=== PATIENT | female | born 1935 | race Caucasian/White ===

== ENCOUNTER 2022-02-22 12:41 | Emergency (ER) | payer MEDICARE, OTHER ==
--- NOTE | 2022-02-22 12:51 | ED Abdominal Pain ---
General Chief Complaint: Abdominal/GI Problems Stated Complaint: BLOODY STOOL; LETHARGY History of Present Illness Date Seen by Provider: Feb 22, 2022 Time Seen by Provider: 12:50 Initial Comments 86-year-old female brought in by family because a fatigue and complaints of "lethargy" patient is recently on hospice. They present they brought her because she "wanted to come to the doctor" however she states she is here because her kids wanted her to come to the doctor. They report that she had some bloody stools but that was over a week ago but none recently. Patient family reports that hospitalist thought that maybe she needed to be checked for urinary tract infection. No reports of fevers chills or other systemic complaints. Patient's complaints are otherwise very vague. Family reports that she is just been declining recently and she has had some increased fatigue and decreased appetite over the last couple weeks. No significant changes reported today. Allergies and Home Medications Allergies Coded Allergies: No Known Drug Allergies (Unverified , 02/22/22) Patient Home Medication List Home Medication List Reviewed: Yes Cephalexin (Cephalexin) 500 Mg Tablet, 500 MG PO QID Prescribed by: RADHA ZAYAS on 02/22/22 5167 Review of Systems Review of Systems Constitutional: see HPI, malaise Respiratory: Denies Cough, Denies Shortness of Air Cardiovascular: Denies Chest Pain, Denies Lightheadedness Gastrointestinal: See HPI; Denies Abdominal Pain, Denies Nausea, Denies Vomiting Genitourinary: No Symptoms Reported Musculoskeletal: no symptoms reported Skin: no symptoms reported Psychiatric/Neurological: No Symptoms Reported Physical Exam Vital Signs Vital Signs - First Documented 02/22/22 13:03 Temp 36.8 Pulse 67 Resp 18 B/P (MAP) 132/70 (90) Pulse Ox 97 O2 Delivery Room Air Capillary Refill : Height/Weight/BMI Height: '" Weight: lbs. oz. kg; BMI Method: General Appearance: no apparent distress, mild distress Respiratory: lungs clear, normal breath sounds Cardiovascular: normal peripheral pulses, regular rate, rhythm Gastrointestinal: non tender, soft Extremities: non-tender, normal inspection Neurologic/Psychiatric: alert, normal mood/affect, oriented x 3 Skin: normal color, warm/dry Progress/Results/Core Measures Results/Orders Lab Results Laboratory Tests Test 02/22/22 13:07 02/22/22 13:27 Range/Units White Blood Count 13.2 H 4.3-11.0 10^3/uL Red Blood Count 3.54 L 3.80-5.11 10^6/uL Hemoglobin 10.8 L 11.5-16.0 g/dL Hematocrit 31 L 35-52 % Mean Corpuscular Volume 88 80-99 fL Mean Corpuscular Hemoglobin 31 25-34 pg Mean Corpuscular Hemoglobin Concent 35 32-36 g/dL Red Cell Distribution Width 14.1 10.0-14.5 % Platelet Count 418 H 130-400 10^3/uL Mean Platelet Volume 9.9 9.0-12.2 fL Immature Granulocyte % (Auto) 1 % Neutrophils (%) (Auto) 84 H 42-75 % Lymphocytes (%) (Auto) 10 L 12-44 % Monocytes (%) (Auto) 5 0-12 % Eosinophils (%) (Auto) 0 0-10 % Basophils (%) (Auto) 0 0-10 % Neutrophils # (Auto) 11.1 H 1.8-7.8 10^3/uL Lymphocytes # (Auto) 1.3 1.0-4.0 10^3/uL Monocytes # (Auto) 0.7 0.0-1.0 10^3/uL Eosinophils # (Auto) 0.0 0.0-0.3 10^3/uL Basophils # (Auto) 0.0 0.0-0.1 10^3/uL Immature Granulocyte # (Auto) 0.1 0.0-0.1 10^3/uL Sodium Level 133 L 135-145 MMOL/L Potassium Level 3.5 L 3.6-5.0 MMOL/L Chloride Level 94 L 98-107 MMOL/L Carbon Dioxide Level 25 21-32 MMOL/L Anion Gap 14 5-14 MMOL/L Blood Urea Nitrogen 22 H 7-18 MG/DL Creatinine 0.97 0.60-1.30 MG/DL Estimat Glomerular Filtration Rate 57 BUN/Creatinine Ratio 23 Glucose Level 205 H 70-105 MG/DL Calcium Level 9.0 8.5-10.1 MG/DL Urine Color YELLOW Urine Clarity CLOUDY Urine pH 6.0 5-9 Urine Specific [place] 1.015 L 1.016-1.022 Urine Protein 2+ H NEGATIVE Urine Glucose (UA) NEGATIVE NEGATIVE Urine Ketones TRACE H NEGATIVE Urine Nitrite NEGATIVE NEGATIVE Urine Bilirubin NEGATIVE NEGATIVE Urine Urobilinogen 1.0 < = 1.0 MG/DL Urine Leukocyte Esterase 2+ H NEGATIVE Urine RBC (Auto) 1+ H NEGATIVE Urine RBC NONE /HPF Urine WBC >100 H /HPF Urine Squamous Epithelial Cells 2-5 /HPF Urine Crystals NONE /LPF Urine Bacteria LARGE H /HPF Urine Casts NONE /LPF Urine Mucus NEGATIVE /LPF Urine Culture Indicated YES My Orders Orders - SINGH ZAYASR L DO Basic Metabolic Panel (02/22/22 13:06) Cbc With Automated Diff (02/22/22 13:06) Ua Culture If Indicated (02/22/22 13:06) Urine Culture (02/22/22 13:27) Straight Cath For Spec.-Adult (02/22/22 13:27) Vital Signs/I&O 02/22/22 13:03 Temp 36.8 Pulse 67 Resp 18 B/P (MAP) 132/70 (90) Pulse Ox 97 O2 Delivery Room Air Progress Progress Note : Progress Note Patient with a mild elevated white count. Her urine is consistent with a urinary tract infection. We will start her on Keflex. Patient's hemoglobin is 10.8. At this time stable and no need for intervention in the absence of active bleed and being on hospice. Patient stable and discharged back home in care of hospice Departure Impression Primary Impression: Acute cystitis with hematuria Disposition: 01 HOME, SELF-CARE Condition: Stable Departure-Patient Inst. Referrals: JUAN MANUEL YANEZ MD (PCP) Primary Care Physician Patient Instructions: Acute Cystitis (DC) Add. Discharge Instructions: Tylenol or ibuprofen as needed for fever or discomfort Please follow-up with your primary care provider in a 1 week for recheck of urine All discharge instructions reviewed with patient and/or family. Voiced understanding. Scripts Cephalexin (Cephalexin) 500 Mg Tablet 500 MG PO QID, #28 TAB 0 Refills Prov: SINGH ZAYASR [place] DO 02/22/22 RADHA ZAYAS DO Feb 22, 2022 12:51
[2022-02-22 13:03] VITALS: BP 132/70
[2022-02-22 13:15] LABS: BASOPHILS % (AUTO) 0 % (0-10); EOSINOPHILS % (AUTO) 0 % (0-10); HEMATOCRIT 31 % (35-52); HEMOGLOBIN 10.8 g/dL (11.5-16.0); LYMPHOCYTES # (AUTO) 1.3 10^3/uL (1.0-4.0); LYMPHOCYTES % (AUTO) 10 % (12-44); MEAN CORPUSCULAR HEMOGLOBIN 31 pg (25-34); MEAN CORPUSCULAR HGB CONC 35 g/dL (32-36); MEAN CORPUSCULAR VOLUME 88 fL (80-99); MEAN PLATELET VOLUME 9.9 fL (9.0-12.2); MONOCYTES # (AUTO) 0.7 10^3/uL (0.0-1.0); MONOCYTES % (AUTO) 5 % (0-12); NEUTROPHILS # (AUTO) 11.1 10^3/uL (1.8-7.8); NEUTROPHILS % (AUTO) 84 % (42-75); PLATELET COUNT 418 10^3/uL (130-400); WHITE BLOOD COUNT 13.2 10^3/uL (4.3-11.0)
[2022-02-22 13:30] LABS: BILIRUBIN,URINE NEGATIVE (NEGATIVE); CLARITY,URINE CLOUDY; COLOR,URINE YELLOW; GLUCOSE, URINE (UA) NEGATIVE (NEGATIVE); KETONES,URINE TRACE (NEGATIVE); LEUKOCYTE ESTERASE ,URINE 2+ (NEGATIVE); NITRITE,URINE NEGATIVE (NEGATIVE); PROTEIN,URINE 2+ (NEGATIVE)
[2022-02-22 13:36] LABS: CREATININE SERUM 0.97 MG/DL (0.60-1.30); POTASSIUM 3.5 MMOL/L (3.6-5.0)
[2022-02-22 13:37] LABS: WBC,URINE >100 /HPF
[2022-02-22 13:38] LABS: BACTERIA,URINE LARGE /HPF
[2022-02-22] MEDS ORDERED: CEPH500T PO (14:07)
== END 2022-02-22 15:00 | disposition home or self-care (01) ==
LOC: EDUNIT# 12:41 → ER FS 12:44
DX: N30.01 Acute cystitis with hematuria (principal)
CPT/HCPCS: 36415; 51701; 80048; 81000; 85025; 87077; 87088; 87186